=== PATIENT | male | born 1960 | race African-American/Black ===

== ENCOUNTER 2018-04-10 15:09 | Inpatient (IN) | payer OTHER ==
[2018-04-10 15:52] VITALS: BMI 20.3
--- NOTE | 2018-04-10 17:53 | HP ---
COWS - Scale Resting Pulse: 0= [place] 80 or Below Sweatin=Flushed/Facial Moisture Restless Observation: 1= Difficult to Sit Still Pupil Size: 0= Normal to Room Light Bone or Joint Aches: 2= Severe Diffuse Aches Runny Nose/ Eye Tearin= Runny Nose/Eyes GI Upset > 30mins: 2= Nausea/Diarrhea Tremor Observation: 2= Slight Tremor Visible Yawning Observation: 2= >3x During Session Anxiety or Irritability: 2=Irritable/Anxious Goose Flesh Skin: 3=Piloerection COWS Score: 18 CIWA Score - Admission Criteria [facility] Guidelines: Admission for Medically Managed Detox: Requires at least one of the followin. CIWA greater than 12 2. Seizures within the past 24 hours 3. Delirium tremens within the past 24 hours 4. Hallucinations within the past 24 hours 5. Acute intervention needed for co occurring medical disorder 6. Acute intervention needed for co occurring psychiatric disorder 7. Severe withdrawal that cannot be handled at a lower level of care (continued vomiting, continued diarrhea, abnormal vital signs) requiring intravenous medication and/or fluids 8. Admission ROS [facility] - HPI Chief Complaint: I am here to detox and get it right. Allergies/Adverse Reactions: Allergies Allergy/AdvReac Type Severity Reaction Status Date / Time No Known Allergies Allergy Verified 04/10/18 17:21 History of Present Illness: pt is a 57yr old male with a history of heroin dependence seeking detox for treatment. Exam Limitations: No Limitations - Ebola screening Have you traveled outside of the country in the last 21 days: No Have you had contact with anyone from an Ebola affected area: No Have you been sick,other than usual withdrawal symptoms: No Do you have a fever: No - Review of Systems Constitutional: Chills, Diaphoresis, Loss of Appetite, Night Sweats, Changes in sleep EENT: reports: Tearing, Nose Congestion Respiratory: reports: No Symptoms reported Cardiac: reports: No Symptoms Reported GI: reports: Constipated, Diarrhea, Nausea, Poor Appetite, Poor Fluid Intake, Vomiting : reports: No Symptoms Reported Musculoskeletal: reports: Back Pain Integumentary: reports: Flushing, Sweating Neuro: reports: Tingling, Tremors Endocrine: reports: Excessive Sweating, Flushing, Intolerance to Cold, Intolerance to Heat Hematology: reports: No Symptoms Reported Psychiatric: reports: No Sypmtoms Reported, Judgement Intact, Mood/Affect Appropiate, Orientated x3 Other Systems: Reviewed and Negative Patient History - Patient Medical History Hx Anemia: No Hx Asthma: No Hx Chronic Obstructive Pulmonary Disease (COPD): No Hx Cancer: No Hx Cardiac Disorders: No Hx Congestive Heart Failure: No Hx Hypertension: No Hx Hypercholesterolemia: No Hx Pacemaker: No HX Cerebrovascular Accident: No Hx Seizures: No Hx Dementia: No Hx Diabetes: No Hx Gastrointestinal Disorders: No Hx Genitourinary Disorders: No Hx Sexually Transmitted Disorders: No Hx Renal Disease (ESRD): No Hx Thyroid Disease: No Hx Human Immunodeficiency Virus (HIV): No (negative) Hx Hepatitis C: No (negative) Hx Depression: No Hx Suicide Attempt: No (denies) Hx Bipolar Disorder: No Hx Schizophrenia: No - Patient Surgical History Past Surgical History: No Hx Neurologic Surgery: No Hx Cataract Extraction: No Hx Cardiac Surgery: No Hx Lung Surgery: No Hx Breast Surgery: No Hx Breast Biopsy: No Hx Abdominal Surgery: No Hx Appendectomy: No Hx Cholecystectomy: No Hx Genitourinary Surgery: No Hx Section: No Hx Orthopedic Surgery: No Anesthesia Reaction: No - PPD History Previous Implant?: Yes Documented Results: Negative w/o proof Implanted On Prior [facility] Admission?: No PPD to be Administered?: Yes - Reproductive History Patient is a Female of Child Bearing Age (11 -55 yrs old): No - Smoking Cessation Smoking history: Current every day smoker Have you smoked in the past 12 months: Yes Aproximately how many cigarettes per day: 4 Hx Chewing Tobacco Use: No Initiated information on smoking cessation: Yes 'Breaking Loose' booklet given: 04/10/18 - Substance & Tx. History Hx Alcohol Use: No Hx Substance Use: Yes Substance Use Type: Heroin Hx Substance Use Treatment: Yes (last detox >1yrs ago) - Substances Abused Heroin Route: Inhalation Frequency: Daily Amount used: 6-7 bags Age of first use: 27 Date of Last Use: 04/10/18 Family Disease History - Family Disease History Family History: Denies Admission Physical Exam [facility] - Vital Signs Vital Signs: Vital Signs - 24 hr 04/10/18 15:46 Temperature 98.4 F Pulse Rate 67 Respiratory 20 Rate Blood Pressure 116/73 - Physical General Appearance: Yes: Appropriately Dressed, Moderate Distress, Tremorous, Irritable, Sweating, Anxious HEENTM: Yes: Hearing grossly Normal, Normal Voice, Nasal Congestion, Rhinorrhea Respiratory: Yes: Lungs Clear, Normal Breath Sounds, No Respiratory Distress Neck: Yes: No masses,lesions,Nodules Breast: Yes: Within Normal Limits Cardiology: Yes: Regular Rhythm, Regular Rate, S1, S2 Abdominal: Yes: Normal Bowel Sounds, Non Tender Genitourinary: Yes: Within Normal Limits Back: Yes: Normal Inspection Musculoskeletal: Yes: full range of Motion, Back pain Extremities: Yes: Normal Capillary Refill, Normal Inspection, Tremors Neurological: Yes: Fully Oriented, Alert, Normal Response Integumentary: Yes: Normal Color, Diaphoresis Lymphatic: Yes: Within Normal Limits - Diagnostic (1) Opioid dependence with withdrawal Current Visit: Yes Status: Chronic Cleared for Admission [facility] - Detox or Rehab [facility] Level of Care: Medically Managed Detox Regimen/Protocol: Methadone [facility] Breath Alcohol Content Breath Alcohol Content: 0 Urine Drug Screen - Results Drug Screen Negative: No Urine Drug Screen Results: OPI-Opiates, BZO-Benzodiazepines, MTD-Methadone, OXY- Oxycodone, FEN-Fentanyl
[2018-04-10] MEDS ORDERED: NICOTINE POLACRILEX 4 MG GUM BC PRN (17:58)
[2018-04-10] MEDS ORDERED: MAG HYDROX/AL HYDROX/SIMETH 30 ML UNIT-DOSE CUP PO PRN (17:58)
[2018-04-10] MEDS ORDERED: MAGNESIUM CITRATE 300 ML BOTTLE PO PRN (17:58)
[2018-04-10] MEDS ORDERED: LOPERAMIDE HCL 2 MG CAPSULE PO PRN (17:58)
[2018-04-10] MEDS ORDERED: hydrOXYzine PAMOATE 50 MG CAPSULE (FP) PO PRN (17:58)
[2018-04-10] MEDS ORDERED: MAGNESIUM HYDROX 2400MG/30ML ORAL SUSPENSION 30 ML CUP PO PRN (17:58)
[2018-04-10] MEDS ORDERED: ACETAMINOPHEN 325 MG TABLET (FP) PO PRN (17:58)
[2018-04-10] MEDS ORDERED: guaiFENesin/D-METHORPHAN HB 10 ML UNIT-DOSE CUPS PO PRN (17:58)
[2018-04-10] MEDS ORDERED: MENTHOL/PHENOL 1 EACH UD MM PRN (17:58)
[2018-04-10] MEDS ORDERED: METHADONE HCL 10 MG TABLET (FOR DETOX USE ONLY) PO ONE ×2 (17:58→23:00)
[2018-04-10] MEDS ORDERED: IBUPROFEN 400 MG TABLET (FP) PO PRN (17:58)
[2018-04-10] MEDS ORDERED: P-EPHED 60MG/TRIPROLIDI 2.5MG TABLET PO PRN (17:58)
[2018-04-10] MEDS: diazePAM 5 MG TABLET PO PRN (19:12)
[2018-04-10] MEDS ORDERED: MELATONIN 5 MG TABLETS PO PRN (22:00)
[2018-04-10] MEDS: THIAMINE HCL 100 MG TABLET (FP) PO SCH (22:08)
[2018-04-11] MEDS ORDERED: METHADONE HCL 10 MG TABLET (FOR DETOX USE ONLY) PO ONE (10:00)
[2018-04-11] MEDS: PRENATAL VITAMINS W/ FOLIC ACID TABLET (FP) PO SCH (10:29)
[2018-04-11] MEDS: NICOTINE 21 MG/24 HOURS TOPICAL PATCH TD SCH (10:30)
[2018-04-11 10:37] LABS: HEMATOCRIT 43.1 % (35.4-49); HEMOGLOBIN 13.5 GM/dL (11.7-16.9); MCH 27.1 pg (25.7-33.7); MCHC 31.3 g/dl (32.0-35.9); MEAN CELL VOLUME 86.6 fl (80-96); MEAN PLT VOLUME 8.3 fl (7.5-11.1); PLATELET COUNT 251 K/MM3 (134-434); RBC 4.98 M/mm3 (4.00-5.60); RDW 14.8 % (11.9-15.9); WHITE BLOOD COUNT 4.2 K/mm3 (4.0-10.0)
[2018-04-11 10:58] LABS: ALBUMIN 3.4 g/dl (3.4-5.0); ALK PHOS 99 U/L (45-117); ANION GAP 7 MMOL/L (8-16); BILIRUBIN,TOTAL 0.4 mg/dL (0.2-1); BLOOD UREA NITROGEN 13 mg/dL (7-18); CALCIUM 8.5 mg/dL (8.5-10.1); CHLORIDE 108 mmol/L (98-107); CO2 26 mmol/L (21-32); CREATININE 1.1 mg/dL (0.55-1.3); GLUCOSE,RANDOM 81 mg/dL (74-106); POTASSIUM 4.6 mmol/L (3.5-5.1); SGOT/AST 20 U/L (15-37); SGPT/ALT 22 U/L (13-61); SODIUM 141 mmol/L (136-145); TOT PROT 6.7 g/dl (6.4-8.2)
[2018-04-11] MEDS ORDERED: TRIMETHOBENZAMIDE HCL 300 MG CAPSULE PO PRN (13:25)
--- NOTE | 2018-04-11 13:25 | PN ---
BHS COWS - Scale Resting Pulse: 0= [place] 80 or Below Sweatin=Flushed/Facial Moisture Restless Observation: 1= Difficult to Sit Still Pupil Size: 0= Normal to Room Light Bone or Joint Aches: 2= Severe Diffuse Aches Runny Nose/ Eye Tearin= Nasal Congestion GI Upset > 30mins: 0= None Tremor Observation of Outstretched Hands: 2= Slight Tremor Visible Yawning Observation: 2= >3x During Session Anxiety or Irritability: 2=Irritable/Anxious Goose Flesh Skin: 0=Smooth Skin COWS Score: 12 BHS Progress Note (SOAP) Subjective: body aches sweats chills interrupted sleep agitation nausea Objective: 04/11/18 13:24 Vital Signs Temperature 98.4 F 04/11/18 09:15 Pulse Rate 66 04/11/18 09:15 Respiratory Rate 18 04/11/18 09:15 Blood Pressure 111/71 04/11/18 09:15 O2 Sat by Pulse Oximetry (%) Laboratory Tests 04/11/18 04/11/18 04/11/18 07:00 07:00 07:00 WBC 4.2 RBC 4.98 Hgb 13.5 Hct 43.1 MCV 86.6 MCH 27.1 MCHC 31.3 L RDW 14.8 Plt Count 251 MPV 8.3 Sodium 141 Potassium 4.6 Chloride 108 H Carbon Dioxide 26 Anion Gap 7 L BUN 13 Creatinine 1.1 Creat Clearance w eGFR > 60 Random Glucose 81 Calcium 8.5 Total Bilirubin 0.4 AST 20 ALT 22 Alkaline Phosphatase 99 Total Protein 6.7 Albumin 3.4 RPR Titer HIV 1&2 Antibody Screen Negative HIV P24 Antigen Negative 04/11/18 07:00 WBC RBC Hgb Hct MCV MCH MCHC RDW Plt Count MPV Sodium Potassium Chloride Carbon Dioxide Anion Gap BUN Creatinine Creat Clearance w eGFR Random Glucose Calcium Total Bilirubin AST ALT Alkaline Phosphatase Total Protein Albumin RPR Titer Nonreactive HIV 1&2 Antibody Screen HIV P24 Antigen aaox3 ambulating no acute distress Assessment: 04/11/18 13:24 withdrawal sx Plan: continue detox increase fluids anti nausea med ordered
[2018-04-11] MEDS: diazePAM 5 MG TABLET PO PRN ×2 (18:04→22:52)
[2018-04-11 19:10] LABS: URINE APPEARANCE CLEAR; URINE BILIRUBIN NEGATIVE (<2.0 mg/dL); URINE COLOR LTYELLOW; URINE GLUCOSE (UA) NEGATIVE (NEGATIVE); URINE KETONE NEGATIVE (NEGATIVE); URINE LEUK ESTERASE NEGATIVE (NEGATIVE); URINE NITRITE NEGATIVE (NEGATIVE); URINE PROTEIN NEGATIVE (NEGATIVE); URINE UROBILINOGEN NEGATIVE mg/dL (0.2-1.0)
[2018-04-11] MEDS: THIAMINE HCL 100 MG TABLET (FP) PO SCH (23:06)
[2018-04-12] MEDS ORDERED: TRIMETHOBENZAMIDE HCL 200MG/2ML INJ IM ONE (06:17)
--- NOTE | 2018-04-12 06:22 | PN ---
S Progress Note Note: Patient [id number] x 1 Vital Signs Temperature 99.5 F 04/12/18 06:25 Pulse Rate 51 L 04/12/18 06:25 Respiratory Rate 16 04/12/18 03:30 Blood Pressure 136/70 04/12/18 06:25 O2 Sat by Pulse Oximetry (%) Action: Tigan 200mg intramuscular ordered
[2018-04-12] MEDS: NICOTINE 21 MG/24 HOURS TOPICAL PATCH TD SCH (09:02)
[2018-04-12] MEDS: PRENATAL VITAMINS W/ FOLIC ACID TABLET (FP) PO SCH (09:02)
[2018-04-12] MEDS: diazePAM 5 MG TABLET PO PRN (09:36)
[2018-04-12] MEDS ORDERED: METHADONE HCL 5 MG TABLET (FOR DETOX USE ONLY) PO ONE (10:00)
--- NOTE | 2018-04-12 10:14 | EKG ---
Test Reason : Blood Pressure : / mmHG Vent. Rate : 047 BPM Atrial Rate : 047 BPM P-R Int : 162 ms QRS Dur : 084 ms QT Int : 438 ms P-R-T Axes : 076 066 062 degrees QTc Int : 387 ms SINUS BRADYCARDIA VOLTAGE CRITERIA FOR LEFT VENTRICULAR HYPERTROPHY ABNORMAL ECG NO PREVIOUS ECGS AVAILABLE Confirmed by MUMTAZ SMITH MD ([id number]) on 04/12/2018 10:14:10 AM Referred By: MARIELY Confirmed By:MUMTAZ SMITH MD
--- NOTE | 2018-04-12 12:42 | PN ---
BHS COWS - Scale Resting Pulse: 1= SD 81-100 Sweatin= Chills/Flushing Restless Observation: 3= Extraneous Movement Pupil Size: 2= Moderately Dilated Bone or Joint Aches: 1= Mild Discomfort Runny Nose/ Eye Tearin= Nasal Congestion GI Upset > 30mins: 1= Stomach Cramp Tremor Observation of Outstretched Hands: 1= Tremor [place], Not Seen Yawning Observation: 1= 1-2x During Session Anxiety or Irritability: 2=Irritable/Anxious Goose Flesh Skin: 0=Smooth Skin COWS Score: 14 BHS Progress Note (SOAP) Subjective: I am in withdrawal , I need methadone Objective: 04/12/18 12:45 Vital Signs Temperature 98.1 F 04/12/18 10:04 Pulse Rate 52 L 04/12/18 10:04 Respiratory Rate 18 04/12/18 10:04 Blood Pressure 151/62 04/12/18 10:04 O2 Sat by Pulse Oximetry (%) heart rate 85 /m Laboratory Tests 04/10/18 04/11/18 04/11/18 23:00 07:00 07:00 WBC 4.2 RBC 4.98 Hgb 13.5 Hct 43.1 MCV 86.6 MCH 27.1 MCHC 31.3 L RDW 14.8 Plt Count 251 MPV 8.3 Sodium Potassium Chloride Carbon Dioxide Anion Gap BUN Creatinine Creat Clearance w eGFR Random Glucose Calcium Total Bilirubin AST ALT Alkaline Phosphatase Total Protein Albumin Urine Color Ltyellow Urine Appearance Clear Urine pH 6.0 Ur Specific [place] 1.019 Urine Protein Negative Urine Glucose (UA) Negative Urine Ketones Negative Urine Blood Negative Urine Nitrite Negative Urine Bilirubin Negative Urine Urobilinogen Negative Ur Leukocyte Esterase Negative RPR Titer HIV 1&2 Antibody Screen Negative HIV P24 Antigen Negative 04/11/18 04/11/18 07:00 07:00 WBC RBC Hgb Hct MCV MCH MCHC RDW Plt Count MPV Sodium 141 Potassium 4.6 Chloride 108 H Carbon Dioxide 26 Anion Gap 7 L BUN 13 Creatinine 1.1 Creat Clearance w eGFR > 60 Random Glucose 81 Calcium 8.5 Total Bilirubin 0.4 AST 20 ALT 22 Alkaline Phosphatase 99 Total Protein 6.7 Albumin 3.4 Urine Color Urine Appearance Urine pH Ur Specific [place] Urine Protein Urine Glucose (UA) Urine Ketones Urine Blood Urine Nitrite Urine Bilirubin Urine Urobilinogen Ur Leukocyte Esterase RPR Titer Nonreactive HIV 1&2 Antibody Screen HIV P24 Antigen pt aox3 in withdrawal Assessment: 04/12/18 12:47 withdrawal sx's Plan: cont. detox treat with methadone dose now. increase fluids
--- NOTE | 2018-04-12 21:34 | PN ---
BHS Progress Note (SOAP) Subjective: Was refusing medications because of being "dope sick". States vomiting earlier. Now with nausea, aches, and shakes. Objective: Alert and oriented. Febrile. Lungs CTA. Abd S/NT/BS-hyperactive. (+) tremors Vital Signs 04/12/18 04/12/18 14:41 18:44 Temperature 99.9 F H 99 F Pulse Rate 49 L 54 L Respiratory 18 18 Rate Blood Pressure 145/68 146/80 Current T= 102. 4 Assessment: Febrile Opiate withdrawal symptoms Plan: Encourage compliance with medications. CloNidine 0.1mg Po now. Zofran 8 mg SL prn nausea/vomiting Ibuprofen 400 mg PO fever. Continue detox
[2018-04-12] MEDS ORDERED: cloNIDine HCL 0.1 MG TABLET PO ONE (21:35)
[2018-04-12] MEDS ORDERED: ONDANSETRON 8 MG TABLET (FP) PO PRN (21:36)
[2018-04-12] MEDS ORDERED: ONDANSETRON *ODT* 4 MG TABLET SL PRN (21:45)
[2018-04-12] MEDS: THIAMINE HCL 100 MG TABLET (FP) PO SCH (21:52)
[2018-04-12] MEDS ORDERED: IBUPROFEN 400 MG TABLET (FP) PO PRN (23:09)
[2018-04-13] MEDS ORDERED: METHADONE HCL 5 MG TABLET (FOR DETOX USE ONLY) PO ONE (10:00)
[2018-04-13] MEDS: PRENATAL VITAMINS W/ FOLIC ACID TABLET (FP) PO SCH (10:10)
[2018-04-13] MEDS: NICOTINE 21 MG/24 HOURS TOPICAL PATCH TD SCH (10:10)
[2018-04-13 14:29] VITALS: BP 145/87; PULSE 58; TEMP 98.3
[2018-04-13] MEDS ORDERED: cloNIDine HCL 0.1 MG TABLET PO PRN (15:21)
--- NOTE | 2018-04-13 15:24 | PN ---
BHS Progress Note (SOAP) Subjective: S: pt states he is still feeling dope sic- would like extra methadone O: Vital Signs - 24 hr 04/12/18 04/12/18 04/12/18 18:44 22:24 23:20 Temperature 99 F 102.2 F H 99.3 F Pulse Rate 54 L 54 L Respiratory 18 18 Rate Blood Pressure 146/80 151/77 140/90 04/13/18 04/13/18 04/13/18 00:30 03:30 07:02 Temperature Pulse Rate 50 L Respiratory 17 18 18 Rate Blood Pressure 141/78 04/13/18 04/13/18 09:52 14:29 Temperature 98.1 F 98.3 F Pulse Rate 52 L 58 L Respiratory 18 16 Rate Blood Pressure 147/76 145/87 Laboratory Tests 04/10/18 04/11/18 04/11/18 23:00 07:00 07:00 WBC 4.2 RBC 4.98 Hgb 13.5 Hct 43.1 MCV 86.6 MCH 27.1 MCHC 31.3 L RDW 14.8 Plt Count 251 MPV 8.3 Sodium Potassium Chloride Carbon Dioxide Anion Gap BUN Creatinine Creat Clearance w eGFR Random Glucose Calcium Total Bilirubin AST ALT Alkaline Phosphatase Total Protein Albumin Urine Color Ltyellow Urine Appearance Clear Urine pH 6.0 Ur Specific [place] 1.019 Urine Protein Negative Urine Glucose (UA) Negative Urine Ketones Negative Urine Blood Negative Urine Nitrite Negative Urine Bilirubin Negative Urine Urobilinogen Negative Ur Leukocyte Esterase Negative RPR Titer HIV 1&2 Antibody Screen Negative HIV P24 Antigen Negative 04/11/18 04/11/18 07:00 07:00 WBC RBC Hgb Hct MCV MCH MCHC RDW Plt Count MPV Sodium 141 Potassium 4.6 Chloride 108 H Carbon Dioxide 26 Anion Gap 7 L BUN 13 Creatinine 1.1 Creat Clearance w eGFR > 60 Random Glucose 81 Calcium 8.5 Total Bilirubin 0.4 AST 20 ALT 22 Alkaline Phosphatase 99 Total Protein 6.7 Albumin 3.4 Urine Color Urine Appearance Urine pH Ur Specific [place] Urine Protein Urine Glucose (UA) Urine Ketones Urine Blood Urine Nitrite Urine Bilirubin Urine Urobilinogen Ur Leukocyte Esterase RPR Titer Nonreactive HIV 1&2 Antibody Screen HIV P24 Antigen a/p: OUD: day #4 of protocol, will add clonidine to vistaril for Sx treatment of OUD. d/w pt can start suboxone once methadone is metabolized out of his body- at rehab or outpt
--- NOTE | 2018-04-13 19:14 | PN ---
[facility] Progress Note Note: TC from RN that pt wants to leave and does not want to wait for provider to get to unit. Spoke with pt over the phone who said "yes, I just want to leave". Not receptive to education/advice to stay to complete detox. Pt denies any complaints, denies any prescription. Pt A & O x 3 Pt will leave AMA, verbalized agreement/understanding.
--- NOTE | 2018-04-13 19:15 | DS ---
[facility] Detox Discharge Summary Admission Date: 04/10/18 Discharge Date: 04/13/18 - History Additional Comments: Pls see progress note pt not in distress gait steady Vital Signs Temperature 98.3 F 04/13/18 14:29 Pulse Rate 58 L 04/13/18 14:29 Respiratory Rate 16 04/13/18 14:29 Blood Pressure 145/87 04/13/18 14:29 O2 Sat by Pulse Oximetry (%) - Physical Exam Results Vital Signs: Vital Signs Temperature 98.3 F 04/13/18 14:29 Pulse Rate 58 L 04/13/18 14:29 Respiratory Rate 16 04/13/18 14:29 Blood Pressure 145/87 04/13/18 14:29 O2 Sat by Pulse Oximetry (%) Pertinent Admission Physical Exam Findings: withdrawal sx - Medication Discharge Medications: Ambulatory Orders Naloxone HCl [Narcan] 4 mg NS PRN #1 bottle 04/13/18 - Diagnosis (1) Opioid dependence with withdrawal Current Visit: Yes Status: Acute - AMA Did Patient Leave Against Medical Advice: Yes
[2018-04-14] MEDS ORDERED: METHADONE HCL 10 MG TABLET (FOR DETOX USE ONLY) PO ONE (10:00)
[2018-04-15] MEDS ORDERED: METHADONE HCL 5 MG TABLET (FOR DETOX USE ONLY) PO ONE (06:00)
== END 2018-04-13 17:33 | disposition left against medical advice (07) | DRG 770 ==
LOC: YASAS 15:09 → Y6N 18:07
PROC: HZ2ZZZZ Detoxification Services for Substance Abuse Treatment (ICD-10-PCS; principal; 2018-04-10)
DX: F11.23 Opioid dependence with withdrawal (principal); F17.210 Nicotine dependence, cigarettes, uncomplicated
CPT/HCPCS: 36415; 80053; 81003; 85027; 86593; 87389; 93005; 93010; J0735; Q0162